=== PATIENT | female | born 1975 | race Two or more races ===

== ENCOUNTER → 2020-02-27 | Outpatient (CLI) | payer OTHER ==
--- NOTE | 2020-02-27 13:49 | RADIOLOGY REPORT (SQ) ---
EXAM DESCRIPTION: L SPINE W/FLEX/EXT IMAGES COMPLETED DATE/TIME: 02/27/2020 12:42 pm REASON FOR STUDY: M43.16 SPONDYLOLISTHESIS, LUMBAR REGION M43.16 SPONDYLOLISTHESIS, LUMBAR REGION COMPARISON: None. NUMBER OF VIEWS: 6 views TECHNIQUE: AP and oblique views were obtained. Lateral views were obtained in neutral, flexion, and extension. LIMITATIONS: None. FINDINGS: MINERALIZATION: Normal. SEGMENTATION: Normal. No transitional anatomy. ALIGNMENT: Grade 1 anterolisthesis of L5 on S1. FLEXION/EXTENSION: No instability. VERTEBRAE: Maintained height. No fracture or worrisome bone lesion. DISCS: Preserved height. No significant osteophytes or end plate irregularity. POSTERIOR ELEMENTS: Spina bifida occulta at L5. HARDWARE: None in the spine. OTHER: No other significant finding. IMPRESSION: Grade 1 anterolisthesis of L5 on S1. Spina bifida occulta at L5. No instability on flexion/extension. TECHNICAL DOCUMENTATION: JOB ID: [id number] 2010 [employer]- All Rights Reserved Reading location - IP/workstation name: [email or web address]
== END ==
LOC: RAD 12:24
PROVIDERS: ATTEND Student in an Organized Health Care Education/Training Program
DX: M43.16 Spondylolisthesis, lumbar region (principal); Q05.7 Lumbar spina bifida without hydrocephalus
CPT/HCPCS: 72114